=== PATIENT | male | born 1970 | race Caucasian/White ===

== ENCOUNTER 2016-07-12 00:26 | Emergency (ER) | payer OTHER ==
[~2016-07-12 00:26] MED LIST: ALPRAZOLAM1 M2 PO; ATIVAN1 MG PO; ATORVASTATIN CA20 M1 PO; ESCITALOPRAM OX10 MG PO; ESCITALOPRAM OX20 MG PO; IBUPROFEN800 MG PO; LOSARTAN POTAS100 M1 PO; LOSARTAN POTASS25 M1 PO; METHADONE10 MG/5 M2 PO; NICOTINE LOZENGE2 MG PO; PERCOCET 325 MG1 TA2 PO; PRILOSEC 20MG C20 MG PO; PROAIR HFA0.09 MG/Ac INH; PROAIR HFA8.5 GM INH; TUSSIONEX PENN480 ML PO; TYLENOL EXTRA500 M2 PO; VICODIN 5-3001 EACH PO; ZITHROMAX Z-PA250 M1 PO
[2016-07-12] MEDS ORDERED: LEXAPRO20 M1 PO (00:36)
[2016-07-12] MEDS ORDERED: XANAX1 M1 PO (00:36)
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
[2016-07-12 00:48] VITALS: BP 118/71
== END 2016-07-12 00:53 ==
LOC: ERH 00:26
DX: F41.9 Anxiety disorder, unspecified (principal)
CPT/HCPCS: 99281

== ENCOUNTER 2016-07-24 11:56 | Emergency (ER) | payer OTHER ==
[~2016-07-24] VITALS: Ht 188 cm; Wt 95.3 kg
[~2016-07-24 11:56] MED LIST changes: +LEXAPRO20 M1 PO; +XANAX1 M1 PO
[2016-07-24 11:59] VITALS: BP 164/98
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
[2016-07-24] MEDS ORDERED: XANAX1 M1 PO (12:43)
[2016-07-24] MEDS ORDERED: ESCITALOPRAM OX20 MG PO (12:43)
== END 2016-07-24 12:46 ==
LOC: ERH 11:56
DX: F41.9 Anxiety disorder, unspecified (principal)
CPT/HCPCS: 99281

== ENCOUNTER 2016-08-07 09:10 | Emergency (ER) | payer OTHER ==
[~2016-08-07] VITALS: Ht 188 cm; Wt 81.6 kg
[2016-08-07 09:14] VITALS: BP 168/94
[2016-08-07] MEDS ORDERED: HYDROCHLOROTHIA25 M1 PO (10:01)
[2016-08-07] MEDS ORDERED: ESCITALOPRAM OX20 MG PO (10:01)
[2016-08-07] MEDS ORDERED: XANAX1 M1 PO (10:01)
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
== END 2016-08-07 10:04 ==
LOC: ERH 09:10
DX: Z76.0 Encounter for issue of repeat prescription (principal); I10 Essential (primary) hypertension; Z72.0 Tobacco use
CPT/HCPCS: 99281

== ENCOUNTER 2016-09-30 10:31 | Emergency (ER) | payer OTHER ==
[~2016-09-30] VITALS: Ht 188 cm; Wt 102.1 kg
[~2016-09-30 10:31] MED LIST changes: +HYDROCHLOROTHIA25 M1 PO
[2016-09-30 10:39] VITALS: BP 123/84
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
[2016-09-30] MEDS ORDERED: COZAAR100 M1 PO (11:01)
== END 2016-09-30 11:13 ==
LOC: ERH 10:31
DX: Z76.0 Encounter for issue of repeat prescription (principal); R07.9 Chest pain, unspecified
CPT/HCPCS: 93005; 93010

== ENCOUNTER 2016-10-07 16:56 | Emergency (ER) | payer OTHER ==
[~2016-10-07] VITALS: Ht 182.9 cm; Wt 99.8 kg
[~2016-10-07 16:56] MED LIST changes: +COZAAR100 M1 PO
[2016-10-07 17:12] VITALS: BP 138/84
[2016-10-07] MEDS ORDERED: ASPIRIN EC81 M1 PO (17:39)
[2016-10-07] MEDS ORDERED: LEXAPRO20 M1 PO (17:54)
[2016-10-07] MEDS ORDERED: ATIVAN1 M1 PO (17:54)
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
[2016-10-07] MEDS ORDERED: XANAX1 M1 PO (18:00)
== END 2016-10-07 18:02 ==
LOC: ERH 16:56
DX: Z76.0 Encounter for issue of repeat prescription (principal)
CPT/HCPCS: 99281

== ENCOUNTER 2016-11-12 07:57 | Emergency (ER) | payer OTHER ==
[~2016-11-12] VITALS: Ht 188 cm; Wt 63.5 kg
[~2016-11-12 07:57] MED LIST changes: +ASPIRIN EC81 M1 PO; +ATIVAN1 M1 PO
[2016-11-12 08:03] VITALS: BP 138/90
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
[2016-11-12] MEDS ORDERED: XANAX1 M1 PO (08:53)
[2016-11-12] MEDS ORDERED: PROAIR HFA8.5 GM INH (08:53)
[2016-11-12] MEDS ORDERED: ESCITALOPRAM OX20 MG PO (08:53)
[2016-11-12] MEDS ORDERED: PREDNISONE10 M2 PO (08:53)
[2016-11-13] MEDS ORDERED: ESCITALOPRAM OX20 MG PO (03:51)
[2016-11-13] MEDS ORDERED: XANAX1 M1 PO (03:51)
== END 2016-11-12 09:02 ==
LOC: ERH 07:57
DX: J45.909 Unspecified asthma, uncomplicated (principal); Z76.0 Encounter for issue of repeat prescription; Z72.0 Tobacco use

== ENCOUNTER 2016-11-12 23:29 | Emergency (ER) | payer OTHER ==
[~2016-11-12] VITALS: Ht 188 cm; Wt 108.9 kg
[~2016-11-12 23:29] MED LIST changes: +PREDNISONE10 M2 PO
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
[2016-11-13 00:16] LABS: ABSOLUTE BASOPHIL COUNT 0.1 /CUMM (0.0-0.2); ABSOLUTE EOSINOPHIL COUNT 0.1 /CUMM (0.0-0.7); ABSOLUTE GRANULOCYTE CT 7.6 /CUMM (1.4-6.5); ABSOLUTE LYMPH COUNT 2.7 /CUMM (1.2-3.4); ABSOLUTE MONOCYTE COUNT 0.7 /CUMM (0.10-0.60); BASOPHIL % 0.7 % (0.0-2.0); EOSINOPHIL % 1.1 % (0-5); GRANULOCYTE % 67.9 % (42.2-75.2); HEMATOCRIT 38.3 % (42-52); MEAN CORPUSCULAR HGB 28.8 PG (27.0-31.0); MEAN CORPUSCULAR HGB CONC 33.7 G/DL (33.0-37.0); MEAN CORPUSCULAR VOLUME 85.4 FL (80.0-94.0); MEAN PLATELET VOLUME 7.4 FL (7.4-10.4); PLATELET COUNT 187 /CUMM (130-400); RBC DISTRIBUTION WIDTH 13.8 % (11.5-14.5); RED BLOOD CELL CT 4.49 /CUMM (4.70-6.10); WHITE BLOOD CELL COUNT 11.1 /CUMM (4.8-10.8)
--- NOTE | 2016-11-13 00:42 | RADIOLOGY REPORT ---
EXAMINATION: XR PORTABLE CHEST CLINICAL INFORMATION: Shortness of breath. COMPARISON: 06/05/2015 TECHNIQUE: Portable frontal view of the chest was obtained. FINDINGS: Limited imaging due to occlusion of the right costophrenic angle inferiorly. No significant abnormality is noted involving the heart, lungs, mediastinum, bony thorax or soft tissues. IMPRESSION: Unremarkable examination. Limited imaging.
[2016-11-13] MEDS ORDERED: XANAX1 M1 PO (03:51)
[2016-11-13] MEDS ORDERED: ESCITALOPRAM OX20 MG PO (03:51)
[2016-11-13 03:57] VITALS: BP 120/72
== END 2016-11-13 03:59 ==
LOC: ERH 23:29
PROVIDERS: Pediatrics
DX: R55 Syncope and collapse (principal)
CPT/HCPCS: 1263; 93005; 93010

== ENCOUNTER 2016-11-15 22:22 | Inpatient (IN) | payer OTHER ==
[~2016-11-15] VITALS: Ht 177.8 cm; Wt 79.4 kg
--- NOTE | 2016-11-15 22:29 | NUR ---
PT ZOE FROM HOME C/O CP "STRESS RELATED," PER PT ALL DAY. TO TRY AND ALLEVIATE THE PAIN PT TOOK EPI PEN TO HIS CHEST. PT C/O "I'M REAL ANXIOUS." EMS ADMINISTERED 1 ASA AND 1 SL NITRO THAT BROUGHT PAIN DOWN FROM 07/14 TO 06/13. PT IS ON PEER. PEER STATES PT WAS GRABBING KNIVES AND THREATENING TO CUT WRISTS. DENIES SI/HI HERE.
[2016-11-15] MEDS ORDERED: EPINEPHRIN0.3 MG/0.1 AD (22:33)
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
--- NOTE | 2016-11-15 23:15 | NUR ---
PT CHANGED INTO BLUE SCRUBS. WANDED. SECURITY AT BEDSIDE.
--- NOTE | 2016-11-15 23:32 | NUR ---
LABS SENT. RADIOLOGY AT BEDSIDE.
[2016-11-15 23:33] LABS: ABSOLUTE BASOPHIL COUNT 0.1 /CUMM (0.0-0.2); ABSOLUTE EOSINOPHIL COUNT 0.5 /CUMM (0.0-0.7); ABSOLUTE GRANULOCYTE CT 6.2 /CUMM (1.4-6.5); ABSOLUTE LYMPH COUNT 3.2 /CUMM (1.2-3.4); ABSOLUTE MONOCYTE COUNT 0.9 /CUMM (0.10-0.60); EOSINOPHIL % 4.9 % (0-5); GRANULOCYTE % 56.8 % (42.2-75.2); HEMATOCRIT 41.2 % (42-52); MEAN CORPUSCULAR HGB 28.7 PG (27.0-31.0); MEAN CORPUSCULAR HGB CONC 33.8 G/DL (33.0-37.0); MEAN CORPUSCULAR VOLUME 85.1 FL (80.0-94.0); MEAN PLATELET VOLUME 7.1 FL (7.4-10.4); PLATELET COUNT 209 /CUMM (130-400); RBC DISTRIBUTION WIDTH 13.8 % (11.5-14.5); RED BLOOD CELL CT 4.85 /CUMM (4.70-6.10)
--- NOTE | 2016-11-15 23:55 | RADIOLOGY REPORT ---
EXAMINATION: XR PORTABLE CHEST CLINICAL INFORMATION: Chest pain COMPARISON: Chest x-ray 12/12/2016 TECHNIQUE: Portable frontal view of the chest was obtained. 11:29 PM FINDINGS: No significant abnormality is noted involving the heart, lungs, mediastinum, bony thorax or soft tissues. IMPRESSION: Unremarkable examination.
--- NOTE | 2016-11-16 00:04 | NUR ---
AT BEDSIDE TO
--- NOTE | 2016-11-16 00:20 | NUR ---
MEDICATED WITH PREDNISONE PER EMAR. RESP CALLED FOR TX.
--- NOTE | 2016-11-16 00:34 | NUR ---
RESP AT BEDSIDE FOR TX
--- NOTE | 2016-11-16 00:57 | NUR ---
PT REQUESTING SOMETHING FOR ANXIETY. MD AWARE.
--- NOTE | 2016-11-16 01:15 | NUR ---
PT MEDICATED WITH XANAX PER EMAR.
--- NOTE | 2016-11-16 01:30 | NUR ---
PT PULLED OUT IV. ASKING FOR FOOD. REMINDED HE IS TO REMAIN NPO AT THIS TIME.
--- NOTE | 2016-11-16 02:35 | NUR ---
REPEAT TROP AND EKG DONE. PT GIVEN APPLESAUCE AND INSTRUCTED TO TRY AND GET SOME SLEEEP AND AWAIT EVAL IN AM
--- NOTE | 2016-11-16 03:32 | NUR ---
RESTLESSW WALKING IN AND OUT OF RM 1 REQUESTING SOMETHING FOR SLEEP XANAX 1MG PO GIVEN
--- NOTE | 2016-11-16 05:24 | NUR ---
PT CONTINUES TO BE RESTLESS WALKING IN AND OUT OF ROOM. THIS RN AND ANA CREWS ASKED IF THERE WAS ANYTHING WE COULD DO TO MAKE HIM MORE COMFORTABLE, OFFERED RECLINER CHAIR. PT DENIED NEEDS. STATES "THE ONLY THING THAT WILL MAKE THIS BETTER IS WHEN THEY CATER TO ME FIRST THIS MORNING BECAUSE I'M NOT A CRIMINAL."
--- NOTE | 2016-11-16 05:27 | NUR ---
PT NOW BACK AT NURSES STATION. REMINDED TO GO BACK INTO ROOM. LIMITS SET. PT SHOUTING "I NEED TO KNOW WHAT TIME IT IS." ANSWERED QUESTION FOR PT.
--- NOTE | 2016-11-16 07:01 | NUR ---
REPORT GIVEN TO ANA CAMARGO
[2016-11-16] MEDS ORDERED: VENTOLIN HFA18 GM INH (07:02)
[2016-11-16] MEDS ORDERED: PREDNISOLO15 MG/5 M4 PO (07:02)
--- NOTE | 2016-11-16 07:07 | NUR ---
ASSUMED CARE OF PT WHO CONTINUES TO COME INTO HALLWAY ASKING TO LEAVE. PT GIVEN BREAKFAST TRAY. WILL REQUEST SITTER ORDER FROM MD. PT ON POLICE PAPER.
--- NOTE | 2016-11-16 07:24 | NUR ---
SITTER ORDER PLACED, NO SITTER AVAILABLE. SNACK FOODS MIXER OPERATOR DIANA AWARE AND WILL SEND PT TO AREA AT 0800 WHEN ANOTHER SITTER BECOMES AVAILABLE
--- NOTE | 2016-11-16 08:03 | NUR ---
PT SISTER [phone]. SHE REQUESTS CRISIS CALL HER AFTER EVALUATING PT
--- NOTE | 2016-11-16 08:18 | NUR ---
PT TO BE MOVED TO HALLWAY OUTSIDE RM 12. PT IS CURRENTLY SLEEPING. PER SERVER ADMINISTRATOR, PT DIDN'T SLEEP AT ALL LAST NIGHT. WILL MOVE PT UPON HIS AWAKENING
--- NOTE | 2016-11-16 09:00 | NUR ---
PT MOVED TO [facility]. REPORT TO JULIO CÉSAR PEREZ
--- NOTE | 2016-11-16 10:03 | NUR ---
Please do BAL for crisis to evaluate
--- NOTE | 2016-11-16 10:30 | NUR ---
PT SLEEPING AT THIS TIME SITTER REMAINS
--- NOTE | 2016-11-16 11:33 | NUR ---
PT AT PRESIDENT AND CHIEF EXECUTIVE OFFICER DESK ASKING WHEN HE WOULD BE SEEN BY CRISIS. THIS RN ADVISED HIM THAT THE LAB IS RUNNING ONE MORE TEST THEN HE IS NEXT TO MEET WITH CRISIS. PT ASKING TO CALL HIS , WHICH MST HELPED HIM WITH. SITTER AT BEDSIDE.
--- NOTE | 2016-11-16 12:22 | NUR ---
PT'S AT BEDSIDE PT MEDICATED WITH LOSARTAN, LIPITOR AND XANAX 1MG PER EMAR SITTER AT BEDSIDE
--- NOTE | 2016-11-16 13:14 | NUR ---
21MG NICODERM PATCH APPLIED TO PT'S RUE
--- NOTE | 2016-11-16 13:30 | NUR ---
PT'S TAKING PT'S VALUABLES AND CLOTHES
--- NOTE | 2016-11-16 14:14 | NUR ---
PT REPEATEDLY ASKING TO LEAVE ER. PT REQUIRES REDIRECTION TO STAY ON STRETCHER. SITTER AT BEDSIDE.
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
--- NOTE | 2016-11-16 14:30 | NUR ---
PT GOT UP OFF STRETCHER AND SAID "I AM LEAVING". SECURITY PRESENT AND ABLE TO REDIRECT PT BACK TO STRETCHER. DR HENDRIX ORDERED IM MEDS (ATIVAN 2MG, HALDOL 5MG AND BENADRYL 50MG), BUT PT IN GOOD BEHAVIORAL CONTROL AT THIS TIME. PT IS ASKING FOR A DOSE OF XANAX. SITTER AT DOOR.
--- NOTE | 2016-11-16 15:17 | NUR ---
PT ADVISED BY CRISIS THAT HE WILL BE STAYING. PT REQUESTING XANAX AT THIS TIME AND REFUSES IM MEDS
--- NOTE | 2016-11-16 15:20 | NUR ---
PT MEDICATED WITH XANAX 1MG FOR ANXIETY AND AGITATION
--- NOTE | 2016-11-16 16:45 | NUR ---
PT ASLEEP AT THIS TIME ON STRETCHER IN [facility]. PT HAS BEEN TOLD THAT HE WILL NOT BE DISCHARGED TODAY. SITTER AT BEDSIDE.
--- NOTE | 2016-11-16 17:30 | NUR ---
PT ADVISED BY CRISIS THAT HE WILL BE ADMITTED TO CPS. PT IS ON PEC. SITTER AT BEDSIDE.
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
--- NOTE | 2016-11-16 18:51 | NUR ---
RESPIRATORY CALLED FOR BREATHING TREATMENT
--- NOTE | 2016-11-16 19:45 | NUR ---
PT RESTING QUIETLY ON STRETCHER IN HALLWAY D AWAITING TRANSFER DOWN TO CPS. PT HAS BEEN MORE COOPERATIVE SINCE LEARNING HE IS BEING ADMITTED TO CPS. SITTER AT BEDSIDE.
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
[2016-11-17 12:48] VITALS: BP 96/66
--- NOTE | 2016-11-17 13:14 | SOCIAL WORKER PROG NOTE PSYCH ---
See Addendum Social Work Progress Note Progress Note Faxed letter to [facility] regarding hearing for today 11/17/16. Jesus signed a release of information for [facility] as well as his , Jennifer Nair ph#[phone]. He is open to having a meeting with his , early next week. He doesn't feel he should be here inpatient.
--- NOTE | 2016-11-17 13:18 | NUR ---
BP 98/62, PER DR HAM GIVE METHADONE 40MG. ENCOURAGE FLUIDS AND CONTINUE TO MONITOR.
--- NOTE | 2016-11-17 14:04 | SOCIAL WORKER PROG NOTE PSYCH ---
Social Work Progress Note Progress Note Pt mood was calm engaging and cooperative today. Pt denies SI/HI, no evidence of psychosis. Pt reports he is experiencing withdrawal from Methadone. Pt states he was given non-narcotic medication for pain and withdrawal symptoms last night but he did not have any relief. "I'm having a real hard time with the withdrawal, I need more medications to feel better. Pt denied that he attempted to commit suicide with his parasuicidal gesture yesterday when he used the epi-pen to stick himself in the chest. Pt admits his I did stick myself, but "it was a mistake". Pt's goal is to stop taking Methadone Pt want to return to work Pt wants to renew his relationship with his father and has a question as to whether he should contact his father on father's day. Pt wants to impress upon the team here at [facility] that he tried to quit methadone on his own, but he is experiencing a lot of withdrawal and physical pain.
--- NOTE | 2016-11-17 14:19 | NUR ---
PT IS COMPLIANT AND COOPERATIVE. MOOD IS STABLE WITH A FULL RANGE OF AFFECT- PT CAN BE IRRITABLE AT TIMES. PT DENIES SI AT THIS TIME, NO COMPLAINS OFFERED. PT TENDS TO BE HYPERVERBAL, NEEDS REDIRECTION AT TIMES. PT IS PRESENT ON THE UNIT AND INTERACTING WITH PEERS AND STAFF. PT IS ATTENDING GROUPS. BP HAS RUNNING LOW- 100/64 AT 0800 AND 96/66 AT 1200. PULSE IS WNL. APPETITE IS GOOD.
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
[2016-11-17 16:32] VITALS: BP 108/61
[2016-11-17 19:51] VITALS: BP 92/49
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
--- NOTE | 2016-11-18 04:20 | NUR ---
SLEPT WELL NO ISSUES.
[2016-11-18 08:50] VITALS: BP 115/66
--- NOTE | 2016-11-18 11:56 | NUR ---
Russel was very visible on the unit. Social with peers and staff and in a pleasant mood. Denies SH/HI. Showered this am and to shave after lunch. Spoke of wanting to come off all his methadone and wanting to feel better. Russel did not attend group this am.
--- NOTE | 2016-11-18 12:09 | CP SOUTH PROGRESS NOTE PSYCH ---
Psych (Inpt) Progress Note Progress Note Include the following elements, when applicable: Involvement in the active treatment of the patient with behavioral observations of the patient and the patient's response to the treatment. Review of the ongoing treatment process in the context of the treatment plan. Indication of how multi-disciplinary staff members are carrying out the treatment plan. Plans for future interventions and recommendations for revision of the treatment plan. Liaison with other physicians/providers. Progress Note: Patient seen chart reviewed d/w nursing staff he states he is feeling "better today" denies depression or si/hi or psychosis. no cravings urges or major wd sx. He feels hopeful for the future medication compliant no se reported. sleeping well no other complaints glad he came into the hospital [id number] cooperaive fair eye contact. normal speech "better" mood euthmic affect linear goal directed denies si/hi or psychosis. i/j improving depression, opiate dep tbi continue current tx plan
[2016-11-18 12:59] VITALS: BP 82/47
[2016-11-18 16:08] VITALS: BP 106/81
--- NOTE | 2016-11-18 18:42 | NUR ---
PT IS CALM, COOPERATIVE WITH STAFF AND PEERS, AND COMPLIANT WITH UNIT RULES. OFTEN IN MILIEU, INTERACTING WELL WITH OTHERS. MOOD IS STABLE, AFFECT APPEARS FULL RANGE, COMMUNICATION IS ORGANIZED AND APPEARS NORMAL IN ALL RESPECTS, AND APPETITE IS NORMAL. PT DENIES SI AT THIS TIME.
[2016-11-18 19:58] VITALS: BP 101/58
--- NOTE | 2016-11-19 06:10 | NUR ---
PATIENT WAS BRIEFLY AWAKE IN BED X1, OTHERWISE SLEPT ALL NIGHT.
[2016-11-19 08:43] VITALS: BP 127/76
[2016-11-19 12:27] VITALS: BP 84/56
--- NOTE | 2016-11-19 12:54 | NUR ---
PT IS COMPLIANT AND COOPERATIVE. MOOD IS STABLE WITH A FULL RANGE OF AFFECT. PT DENIES SI AT THIS TIME, C/O CHRONIC PAIN. PT IS PRESENT ON THE UNIT AND INTERACTING WELL WITH PEERS AND STAFF. PT IS ATTENDING GROUPS. PT BP WAS LOW AT 1200- 84/56. OTHER VITALS WNL. APPETITE IS GOOD.
--- NOTE | 2016-11-19 13:06 | CP SOUTH PROGRESS NOTE PSYCH ---
Psych (Inpt) Progress Note Progress Note Include the following elements, when applicable: Involvement in the active treatment of the patient with behavioral observations of the patient and the patient's response to the treatment. Review of the ongoing treatment process in the context of the treatment plan. Indication of how multi-disciplinary staff members are carrying out the treatment plan. Plans for future interventions and recommendations for revision of the treatment plan. Liaison with other physicians/providers. Progress Note: Patient seen chart reviewed d/w nursing staff he reports feeling "good" today denies depression or anxiety no si/hi. med compliant no se reported denies cravings urges or wd sx. did report feeling restless last night but feeling good today. CM, ASA casuallyd ressed and groomed. cooperative fair eye contact. normal speech. good mood euthymic affect. linear goal directed. denies si/hi or psychosis i/j limited Depressive d/o tbi opiate dep continue current tx plan
[2016-11-19 16:13] VITALS: BP 149/75
--- NOTE | 2016-11-19 18:45 | NUR ---
PT IS CALM, COOPERATIVE WITH STAFF AND PEERS, AND COMPLIANT WITH UNIT RULES. OFTEN IN MILIEU, INTERACTING WELL WITH OTHERS. MOOD IS STABLE, AFFECT APPEARS EUTHYMIC TO FULL RANGE, COMMUNICATION IS ORGANIZED AND APPEARS NORMAL IN ALL RESPECTS, AND APPETITE IS NORMAL. PT DENIES SI AT THIS TIME.
[2016-11-19 19:55] VITALS: BP 119/52
[2016-11-20 07:51] VITALS: BP 97/64
--- NOTE | 2016-11-20 10:52 | SOCIAL WORKER PROG NOTE PSYCH ---
Social Work Progress Note Progress Note Prompted Jesus to meet late morning. He was in bed resting. When he got up he appeared a little dizzy. He reported he got up quickly after taking his meds , but he was fine. He stated he was bored and was looking to go home soon. I told him that we would like to have his in for a family meeting. He was agreeable. I told him there was a possibility of him leaving today. He was happy about that. Denied any suicidal thoughts and stated he was never suicidal prior to admission and that it was a misunderstanding. He reports that his goal has been to taper off methadone and he is finally down to 10mg as of today. He was tired of going to the Methadone clinic daily and did not care for the atmosphere there. He didn't feel that the doctor there was helpful at getting him off, so he decided to taper himself. He said he was experiencing some chest pain prior to admission, which was also radiating into his back. He said the pain has come and gone. He didn't know what it was from. Anxiety? Methadone taper? ect.. He is intersted in returning to see Dr. Giraldo and signed a release so that I can confirm his next appt. He states that he has an appt. on . I called Dr. Giraldo's office, but he is out of the office until . The answering service said they will pass along my message and contact info. Called Jennifer, Jesus's to schedule a meeting. She will check and see if she can get transportation here later this afternoon. Called me back and stated she can come between 1-2pm. Dr. Reid, Jesus, Jennifer, and I met together. Jesus shared how he had proceeded to taper his Methadone on his own over the past couple of weeks. He cares not to be connected to [facility] anymore. He had some concerns about his blood pressure and his medications. He was encouraged to follow up with Dr. Canas, who is regular PCP. His was fine with his discharge today. Didn't offer any concers. He will follow up with Dr. Giraldo. Dr. Reid talked with him about thinking of tapering off the Xanax , because it is not helpful for halfway use. He said it was a goal to get off of that eventually as well.
[2016-11-20 12:19] VITALS: BP 106/57
--- NOTE | 2016-11-20 14:39 | NUR ---
PT IS DISCHARGED TODAY TO [facility].HE DENIES ANY THOUGHTS OF SUICIDE OR SELF HARM. PT IS GIVEN EDUCATION R/T MANAGING HIS MOOD DISORDER AND ON PREVENTING SUICIDE PREVENTION. HE VERBALIZES A GOOD UNDERSTANDING OF HIS MED REGIME AND TREATMENT PLAN
[2016-11-20] MEDS ORDERED: XANAX0.25 M1 PO (14:59)
[2016-11-20] MEDS ORDERED: NICOTINE PATCH1 EAC3 TOP (14:59)
[2016-11-20] MEDS ORDERED: CLONIDINE HCL0.1 MG PO (14:59)
[2016-11-20 15:36] VITALS: BP 134/67
[2016-11-20 15:37] VITALS: BP 106/57
--- NOTE | 2016-11-20 21:03 | CP SOUTH PROGRESS NOTE PSYCH ---
Psych (Inpt) Progress Note Progress Note Include the following elements, when applicable: Involvement in the active treatment of the patient with behavioral observations of the patient and the patient's response to the treatment. Review of the ongoing treatment process in the context of the treatment plan. Indication of how multi-disciplinary staff members are carrying out the treatment plan. Plans for future interventions and recommendations for revision of the treatment plan. Liaison with other physicians/providers. Progress Note: PSYCHIATRIST NOTE (COUPLE'S MEETING/DISCHARGE), 11/20/2016: I discussed this patient's presentation and progress to date, current mental status, treatment and discharge planning with staff team today in the daily morning LACEY and Gris Henriquez LCSW, our medical student, Migel, and I met with patient in his in a couple's session prior to discharging him to resume his outpatient treatment with Lyndon Giraldo M.D., with next appointment scheduled on 11/30/2016; patient was also strongly encouraged to become active in attending local A.A./N.A. meetings and to communicate frequently with a sponsor going forward. Patient will be making an appointment as soon as possible to go over his blood pressure/treatment with his PCP, Dr. Canas; he started on clonidine during this admission which he feels has been of significant benefit in reducing methadone/opioid withdrawal symptoms but also came into hospital on Losartan. Patient acknowledged that it had been unwise of him to unilaterally "rapid taper " himself off methadone (using only the total of 300mg methadone liquid he had home with him for the weekend) and for the past two weeks has been quite miserable; clonidine given during this admission has been helpful but along with the Losartan prescribed for him by his PCP for hypertension has been having a hypotensive effect; he will continue on only a low dose of clonidine, 0.5mg 4x/ day PRN until he meets with Dr. Canas, his PCP to re-evaluate his blood pressure and management of hypertension (?possibly switch from Losartan to clonidine or a low dose combination of the two). Patient's was appropriately supportive of patient and of his continuing in outpatient aftercare and had no reservations whatsoever as to his returning home with her today. Patient was himself very pleased to be going home today, bright and cheerful in affect, euthymic, showing no evidence of suicidal or homicidal ideation, plans, intent or impulses and well aware of his safety plan should he ever in future come to believe himself at acute risk of self-harm or harming others. (for list of all medications prescribed on discharge, doses, scheduling, indications and amounts prescribed, see the Discharge Medications section of the discharge summary from this admission)
--- NOTE | 2016-11-20 21:08 | DISCHARGE SUMMARY REPORT-PSYCH ---
Visit Information Visit Dates/Diagnosis' Admission Date: 11/16/16 Discharge Date: 11/20/16 Reason for Admission: "I made a mistake." Psy Discharge Primary Diag: Unspecified Depression Opioid Use Disorder; in methadone maintenance for approx. 9 yrs; withdrew abruptly on his own only 2 weeks ago (from 150mg) Opioid (methadone) detox. Psy Discharge Secondary Diag: R/O Unspecified Anxiety Disorder with panic sx ( including chest pain) Hypertension Hyperlipidemia Hospital Course Significant Lab Findings: triglycerides = 183, HDL = 39, LDL = 55; WBC = 11.0, HGB = 13.9, HCT = 41.2; EDMUNDO = less than 10.0; urine for drugs of abuse--positive for benzodiazepines ( greater than 800.00ng/ml) and methadone (greater than 735ng/ml); for details of all normal range laboratory data from this admission, see the electronic medical record (the text below belongs with "Hospital Course" section): (see also, all initial/admission assessments and daily M.D./INVENTORY AUDIT CLERK and BLANKBOOK FORWARDER progress notes from this admission which are contained in the electronic medical record) Patient told us during the couple's session that he had initially become dependent on oral opioids following a severe work-related crush injury to his right hand requiring numerous painful operations; eventually, "a friend" told him he should "try methadone for pain management" and spent nearly 10 years "trapped" in methadone clinics where the prescribers "never want to help you reduce your dose, only increase it!" He just stopped his methadone "cold turkey " out of frustration with not receiving any help in reducing it gradually in a controlled manner. Course Complications: none Consultations: patient was seen for an admission medical H&P by Micky Miller M.D., and followed medically during this admission by the hospitalist staff/[facility] medical attening physicians Allergies: Coded Allergies: sertraline (From ZOLOFT) (hallucinations 11/17/16) venom-honey bee (ANAPHYLAXIS 11/15/16) guaifenesin (VOMITING 08/08/15) pseudoephedrine (VOMITING, JITTERS, AWAKE 12/27/15) Hospital Course/TX Response: (see also, all initial/admission assessments and M.D./INVENTORY AUDIT CLERK and BLANKBOOK FORWARDER progress notes which are contained in the electronic medical record) Patient was discharged following a couple's meeting with his to resume his outpatient treatment with Lyndon Giraldo M.D., with next appointment scheduled on 11/30/2016; patient was also strongly encouraged to become active in attending local A.A./N.A. meetings and to communicate frequently with a sponsor going forward. Patient will be making an appointment as soon as possible to go over his blood pressure/treatment with his PCP, Dr. Canas; he started on clonidine during this admission which he feels has been of significant benefit in reducing methadone/opioid withdrawal symptoms but also came into hospital on Losartan. Patient acknowledged that it had been unwise of him to unilaterally "rapid taper" himself off methadone (using only the total of 300mg methadone liquid he had home with him for the weekend) and for the past two weeks has been quite miserable; clonidine given during this admission has been helpful but along with the Losartan prescribed for him by his PCP for hypertension has been having a hypotensive effect; he will continue on only a low dose of clonidine, 0.5mg 4x/ day PRN until he meets with Dr. Canas, his PCP to re-evaluate his blood pressure and management of hypertension (?possibly switch from Losartan to clonidine or a low dose combination of the two). Patient's was appropriately supportive of patient and of his continuing in outpatient aftercare and had no reservations whatsoever as to his returning home with her today. Patient was himself very pleased to be going home today, bright and cheerful in affect, euthymic, showing no evidence of suicidal or homicidal ideation, plans, intent or impulses and well aware of his safety plan should he ever in future come to believe himself at acute risk of self-harm or harming others. Discharge HBIPS - Tobacco Use Treatment Offered Post DC Medications Offered: Script Given-See Med List Post DC Tobacco Treatment Plan: Duy Tobacco Tx Pgm Program Appt Date: 11/29/16 (at 4pm with Leelee Sheppard LCSW) - EtOH/Drug Use D/O Treatment Offered Post DC Medications Offered: NA-No EtOH/Drug Use D/O Post DC EtOH/SubAbuse TX Plan: NA-No EtOH/Drug Use D/O Metabolic Screening - Screen if on a Neuroleptic Medication - Metabolic screening should include: - Blood Pressure, BMI, Glucose or Hgb A1c, & a - Lipid profile from within the past 365 days. Metabolic Screening ([X]) Not Applicable, patient not on a neuroleptic. OR () Patient on a neuroleptic(s) . Enter below results for Glucose or Hemoglobin A1C, and lipid panel if obtained during the last 365 days. BMI: 25.100 Blood Pressure: 106/57 Laboratory Results (If applicable): Discharge Instructions General Discharge Information Discharge Medications: I called into the [facility] on day of discharge, : Lexapro, 20mg: i tab daily in AM (20mg/day); #14 with no refill (anti- depressant) trazodone, 50mg: i tab HS PRN DFA (maximum of 50mg/night); #14 with no refill (sleep induction) clonidine, 0.05mg: i tab 4x/day PRN signs/sx opioid/methadone withdrawal (max. 0.2mg/day); #40 with no refill Xanax, 0.5mg: i tab 4x/day PRN severe anxiety/panic sx (max. 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 patient said he had an adequate supply at home to continue taking: Cozaar, 100mg daily in AM (anti-hypertensive) Lipitor, 20mg daily in AM (control lipids) Multiple Neuroleptics: ([X]) Not Applicable OR Document below three failed attempts at monotherapy, or a plan to taper to monotherapy, or augmentation of Clozapine. () Patient's Diet: heart healthy Patient's Activity: without restrictions DC Disposition: to home with Recommendations: I have gone over with patient repeatedly one-on-one as well as in the presence of his spouse my recommendation that the downward taper of Xanax continue going forward with goal being the complete discontinuation of this and all benzodiazepine drugs. It should also be possible to begin slow taper of current clonidine dose but if patient intends to continue on some amount of clonidine maintenance going forward he needs to discuss this with his PCP, Dr. Canas, who has been prescribing his anti-hypertensive medication Losartan. Referred To: Patient plans to resume his outpatient consultations with Lyndon Giraldo M.D. , beginning with next scheduled appointment on 11/30/2016. He is aware that the [facility] remains an option for treatment in the future provided that patient is completely off benzos. Patient has been strongly urged to regularly attend local A.A./N.A. meetings and frequently communicate with a sponsor. He will make an appointment to consult with his PCP, Dr. Canas, in the next 1-2 weeks to go over his anti-hypertensive regimen in consideration of his being on clonidine for help with residual methadone withdrawal symptoms. He has been given an appointment card for the next [facility] scheduled for 11/29 at 4pm, facilitated by Leelee Sheppard LCSW. Copies To: ZEB KRUGER,LYNDON; NINI KRUGER,BRENDA SHEPPARD LCSW,YEISON
== END 2016-11-20 16:15 | DRG 754 ==
LOC: ERH 22:22 → CP SOUTH 11-16 19:18 → ERHI 11-16 19:18 → CP SOUTH 11-16 21:33
PROVIDERS: Pediatrics; ADMIT Psychiatry & Neurology Psychiatry
DX: F32.9 Major depressive disorder, single episode, unspecified (principal); I10 Essential (primary) hypertension; E78.5 Hyperlipidemia, unspecified
CPT/HCPCS: 80307; 93005; 93010; G0463; G0480; J1200; J1630; J3490

== ENCOUNTER 2017-09-12 10:00 | Emergency (ER) | payer OTHER ==
[~2017-09-12] VITALS: Ht 188 cm; Wt 102.1 kg
[~2017-09-12 10:00] MED LIST changes: +CLONIDINE HCL0.1 MG PO; +EPINEPHRIN0.3 MG/0.1 AD; +NICOTINE PATCH1 EAC3 TOP; +PREDNISOLO15 MG/5 M4 PO; +VENTOLIN HFA18 GM INH; +XANAX0.25 M1 PO
[2017-09-12 11:33] LABS: ABSOLUTE BASOPHIL COUNT 0.1 /CUMM (0.0-0.2); ABSOLUTE EOSINOPHIL COUNT 0.2 /CUMM (0.0-0.7); ABSOLUTE GRANULOCYTE CT 6.5 /CUMM (1.4-6.5); ABSOLUTE LYMPH COUNT 1.5 /CUMM (1.2-3.4); ABSOLUTE MONOCYTE COUNT 0.5 /CUMM (0.10-0.60); BASOPHIL % 1.2 % (0.0-2.0); EOSINOPHIL % 1.8 % (0-5); GRANULOCYTE % 74.8 % (42.2-75.2); HEMATOCRIT 43.8 % (42-52); MEAN CORPUSCULAR HGB 29.5 PG (27.0-31.0); MEAN CORPUSCULAR HGB CONC 34.2 G/DL (33.0-37.0); MEAN CORPUSCULAR VOLUME 86.5 FL (80.0-94.0); MEAN PLATELET VOLUME 7.1 FL (7.4-10.4); PLATELET COUNT 280 /CUMM (130-400); RBC DISTRIBUTION WIDTH 13.4 % (11.5-14.5); RED BLOOD CELL CT 5.06 /CUMM (4.70-6.10); WHITE BLOOD CELL COUNT 8.7 /CUMM (4.8-10.8)
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
[2017-09-12] MEDS ORDERED: PREDNISONE10 M2 PO (11:59)
[2017-09-12] MEDS ORDERED: TESSALON PERLE100 M1 PO (11:59)
[2017-09-12] MEDS ORDERED: AUGMENTIN 875-1 EACH PO (11:59)
[2017-09-12] MEDS ORDERED: DULERA 200 MCG/13 GM INH (12:04)
[2017-09-12] MEDS ORDERED: ALPRAZOLAM1 M2 PO (12:05)
[2017-09-12 12:22] VITALS: BP 166/91
--- NOTE | 2017-09-12 12:42 | RADIOLOGY REPORT ---
EXAMINATION: XR CHEST CLINICAL INFORMATION: Dyspnea. Evaluate for pneumonia. COMPARISON: Chest radiograph 01/21/2017. TECHNIQUE: 2 views of the chest were obtained. FINDINGS: Lungs are well-expanded. No focal consolidative disease. Possible trace effusions. No pneumothorax. The cardiac silhouette and upper mediastinal contours are normal. No acute osseous finding. IMPRESSION: Unremarkable chest radiograph. No consolidative disease or effusion.
== END 2017-09-12 12:58 ==
LOC: ERH 10:00
PROVIDERS: Physician Assistant
DX: J40 Bronchitis, not specified as acute or chronic (principal); J04.0 Acute laryngitis; F17.210 Nicotine dependence, cigarettes, uncomplicated
CPT/HCPCS: 71046; 93005; 93010